=== PATIENT | female | born 1970 | race Caucasian/White ===

== ENCOUNTER 2016-09-16 18:09 | Emergency (ER) | payer OTHER ==
[2016-09-16 18:17] VITALS: BP 127/61
[2016-09-16 19:18] LABS: Hematocrit 38.2 % (30.3-42.9); Hemoglobin 12.6 gm/dl (10.1-14.3); Mean Corpuscular HGB Conc 33 % (30-34); Mean Corpuscular Hemoglobin 28 pg (28-32); Mean Corpuscular Volume 83 fl (79-97); Platelet Count 249 K/mm3 (140-440); Red Blood Count 4.59 M/mm3 (3.65-5.03); Red Cell Distribution Width 14.1 % (13.2-15.2)
[2016-09-16 19:27] LABS: Anion Gap 17 mmol/L; Blood Urea Nitrogen 6 mg/dL (7-17); Calcium 9.2 mg/dL (8.4-10.2); Carbon Dioxide 25 mmol/L (22-30); Chloride 105.8 mmol/L (98-107); Glucose 79 mg/dL (65-100); Magnesium 2.1 mg/dL (1.7-2.3); Potassium 4.4 mmol/L (3.6-5.0); Sodium 143 mmol/L (137-145)
--- NOTE | 2016-09-16 20:07 | Emergency Department Report ---
ED Dizziness HPI - General Chief Complaint: Dizziness Stated Complaint: RT EAR PAIN/DIZZINESS/BLURRED VISION Time Seen by Provider: 09/16/16 19:48 Source: patient Mode of arrival: Ambulatory Limitations: No Limitations - History of Present Illness Initial Comments: 46 y/o female complain of dizziness and right earache x 2 weeks .pt state she has history of allergy . Onset/Timin -: week(s) History of Same: No History of Trauma: No Severity: mild Improves With: nothing Worsens With: nothing Associated Symptoms: denies other symptoms - Related Data Home Medications Medication Instructions Recorded Confirmed Last Taken Azelastine/Fluticasone [Dymista 23 gm NS PRN PRN 05/28/15 09/12/15 09/11/15 Nasal [place]] Dexlansoprazole Dr (Nf) [Dexilant 60 mg PO QDAY 09/03/15 09/12/15 09/11/15 Dr (Nf)] Montelukast [Singulair] 10 mg PO QPM 09/03/15 09/12/15 09/11/15 Nebivolol (Nf) [Bystolic (Nf)] 5 mg PO HS 09/03/15 09/12/15 09/11/15 Tramadol HCl [traMADol] 10 mg PO QDAY PRN 09/03/15 09/12/15 09/11/15 Previous Rx's Medication Instructions Recorded Last Taken Type Amoxicillin/K Clav Tab [Augmentin 1 tab PO Q12HR #14 tab 09/16/16 Unknown Rx 875 mg] Cetirizine HCl [ZyrTEC] 10 mg PO BID #25 capsule 09/16/16 Unknown Rx Allergies Allergy/AdvReac Type Severity Reaction Status Date / Time No Known Allergies Allergy Verified 05/28/15 23:22 ED Review of Systems ROS: Stated complaint: RT EAR PAIN/DIZZINESS/BLURRED VISION Other details as noted in HPI Constitutional: denies: chills, fever Eyes: denies: eye pain, eye discharge, vision change ENT: ear pain. denies: throat pain Respiratory: denies: cough, shortness of breath, wheezing Cardiovascular: denies: chest pain, palpitations Endocrine: no symptoms reported Gastrointestinal: denies: abdominal pain, nausea, diarrhea Genitourinary: denies: urgency, dysuria, discharge Musculoskeletal: denies: back pain, joint swelling, arthralgia Skin: denies: rash, lesions Neurological: denies: headache, weakness, paresthesias Psychiatric: denies: anxiety, depression Hematological/Lymphatic: denies: easy bleeding, easy bruising ED Past Medical Hx - Past Medical History Hx Hypertension: Yes (14 months) Hx GERD: Yes - Social History Smoking Status: Former Smoker - Medications Home Medications: Home Medications Medication Instructions Recorded Confirmed Last Taken Type Azelastine/Fluticasone [Dymista 23 gm NS PRN PRN 05/28/15 09/12/15 09/11/15 History Nasal [place]] Dexlansoprazole Dr (Nf) [Dexilant 60 mg PO QDAY 09/03/15 09/12/15 09/11/15 History (Nf)] Montelukast [Singulair] 10 mg PO QPM 09/03/15 09/12/15 09/11/15 History Nebivolol (Nf) [Bystolic (Nf)] 5 mg PO HS 09/03/15 09/12/15 09/11/15 History Tramadol HCl [traMADol] 10 mg PO QDAY PRN 09/03/15 09/12/15 09/11/15 History Amoxicillin/K Clav Tab [Augmentin 1 tab PO Q12HR #14 tab 09/16/16 Unknown Rx 875 mg] Cetirizine HCl [ZyrTEC] 10 mg PO BID #25 capsule 09/16/16 Unknown Rx ED Physical Exam - General Limitations: No Limitations General appearance: alert, in no apparent distress - Head Head exam: Present: atraumatic, normocephalic - Eye Eye exam: Present: normal appearance, PERRL Pupils: Present: normal accommodation - ENT ENT exam: Present: mucous membranes moist - Expanded ENT Exam Expanded Ear exam: Present: normal external inspection TM/Canal exam: Effusion: Right TM Throat exam: Positive: other (post nasal drip) - Neck Neck exam: Present: normal inspection - Respiratory Respiratory exam: Present: normal lung sounds bilaterally. Absent: respiratory distress - Cardiovascular Cardiovascular Exam: Present: regular rate, normal rhythm. Absent: systolic murmur, diastolic murmur, rubs, gallop - GI/Abdominal GI/Abdominal exam: Present: soft, normal bowel sounds - Extremities Exam Extremities exam: Present: normal inspection - Back Exam Back exam: Present: normal inspection - Neurological Exam Neurological exam: Present: alert, oriented X3 - Psychiatric Psychiatric exam: Present: normal affect, normal mood - Skin Skin exam: Present: warm, dry, intact, normal color. Absent: rash ED Course Vital Signs 09/16/16 18:12 Temperature 98.3 F Pulse Rate 62 Respiratory 16 Rate Blood Pressure 127/61 O2 Sat by Pulse 100 Oximetry ED Medical Decision Making - Lab Data Result diagrams: 09/16/16 18:57 09/16/16 18:57 - Medical Decision Making sinusitis Critical care attestation.: If time is entered above; I have spent that time in minutes in the direct care of this critically ill patient, excluding procedure time. ED Disposition Clinical Impression: Sinusitis Qualifiers: Sinusitis location: frontal Chronicity: acute Recurrence: recurrent Qualified Code(s): J01.11 - Acute recurrent frontal sinusitis Disposition: DISCHARGED TO HOME OR SELFCARE Is pt being admited?: No Does the pt Need Aspirin: No Condition: Stable Instructions: Sinusitis (ED) Prescriptions: Amoxicillin/K Clav Tab [Augmentin 875 mg] 1 tab PO Q12HR #14 tab Cetirizine HCl [ZyrTEC] 10 mg PO BID #25 capsule Referrals: PRIMARY CARE, [Primary Care Provider] - 3-5 Days Time of Disposition: 20:12
== END 2016-09-16 20:30 | disposition home or self-care (01) ==
LOC: ED 18:09
DX: J01.11 Acute recurrent frontal sinusitis (principal); R42 Dizziness and giddiness; H92.01 Otalgia, right ear; I10 Essential (primary) hypertension; K21.9 Gastro-esophageal reflux disease without esophagitis
CPT/HCPCS: 36415; 80048; 83735; 85027; 93005; 93010; 99283